=== PATIENT | male | born 1940 | race Two or more races ===

== ENCOUNTER 2024-05-03 09:55 | Day surgery (SDC) | payer MEDICARE, SELFPAY ==
[2024-05-03] VITALS (8 sets, daily range): BP systolic 140–163; BP diastolic 66–83; PULSE 70–84; RESP 13–25; TEMP 36.6–36.9; O2SAT 96–100; BMI 22.8
[2024-05-03] MEDS: fentaNYL CIT INJ 50 mCg/ML AMP 2ML (ASD USE ONLY) 100 MCG (12:53)
[2024-05-03] MEDS: MIDAZOLAM INJ 1 MG/ML VIAL 2 ML (ASD USE ONLY) 4 MG (12:53)
[2024-05-03] MEDS: SIMETHICONE 40 MG/0.6 ML ORAL SYRINGE PO (13:13)
--- NOTE | 2024-05-03 13:35 | SUR.PHASEII ---
1308: Pt received for recovery. Pt groggy, but awake. Resp even, unlabored. VS stable. Denies pain. 1335: Pt more awake, alert. Sitting up tolerating po fluids with no difficulty swallowing and no n/v.
--- NOTE | 2024-05-03 14:19 | SUR.PHASEII ---
1405: Pt fully awake, oriented x3. Pt was assisted to restroom. Ambulation steady. Pt and brother in law stated understanding of discharge instructions via automotive parts interpreter Ana Paula BURDEN. Pt discharged from [facility] in stable condition.
== END 2024-05-03 14:05 | disposition home or self-care (01) ==
PROVIDERS: PCP Family Medicine; Referring Provider Internal Medicine Gastroenterology; Visit Provider Internal Medicine Gastroenterology
PROC: 0DBE8ZX Excision of Large Intestine, Via Natural or Artificial Opening Endoscopic, Diagnostic (ICD-10-PCS; CPT 45380; principal; 2024-05-03 11:15)
DX: Z12.11 Encounter for screening for malignant neoplasm of colon (principal); K57.30 Diverticulosis of large intestine without perforation or abscess without bleeding; K63.5 Polyp of colon
CPT/HCPCS: 45380; A4217; J2250; J3010; A9270